=== PATIENT | female | born 1990 | race Two or more races ===

== ENCOUNTER 2024-07-27 23:23 | Emergency (ER) | payer SELFPAY ==
[~2024-07-27] VITALS: Ht 167.6 cm; Wt 60.0 kg
[2024-07-27] MEDS ORDERED: MORPHINE SULFATE INJ 2 MG/ml SYRG IV ONE (23:45)
[2024-07-28] MEDS: AMPICILLIN & SULBACTAM SODIUM 3 GM in SODIUM CHL 0.9% 100 ML IV ONE
[2024-07-28] MEDS: ONDANSETRON HCL 4 MG/2 ML VIAL IV ONE (00:13)
[2024-07-28] MEDS: PIPERACILLIN-TAZO 4.5GM 100 ML IV ONE (00:13)
[2024-07-28] MEDS ORDERED: TETANUS-DIPTH-ACEL PERTUSSIS 0.5ML SYR Tdap IM ONE (00:16)
[2024-07-28] MEDS: TETANUS-DIPTH-ACEL PERTUSSIS 0.5ML SYR Tdap IM ONE (00:16)
[2024-07-28] MEDS: MORPHINE SULFATE 4 MG/ML SYR/VIAL IV ONE (00:17)
[2024-07-28 00:30] VITALS: PULSE 90; RESP 22; TEMP 98; O2SAT 98
--- NOTE | 2024-07-28 00:35 | DVH ---
EXAM: XY R FOREARM XRAY HISTORY: dog bite COMPARISON: None TECHNIQUE: AP and lateral views of the right forearm were performed. FINDINGS/IMPRESSION: No acute fracture of the right radius or ulna.
--- NOTE | 2024-07-28 00:37 | DVH ---
EXAM: XY R KNEE 3V XRAY HISTORY: dog bite COMPARISON: None TECHNIQUE: 3 views of the right knee were performed. FINDINGS: No acute fracture is identified about the right knee. No significant joint space narrowing. No evid ence of significant joint effusion. IMPRESSION: Unremarkable radiographs of the right knee.
--- NOTE | 2024-07-28 01:21 | ED.PDOC ---
Jodee. trauma (HPI) HPI Comments 33-year-old female with no significant past medical history brought in by friend complaining of dog bites to the right arm and right lower extremity that occurred just prior to arrival. Patient reports [place] when she was attacked and bitten by a dog that was unknown to her. She reports a large laceration on her right forearm and puncture wounds on her right knee area. She denies any limited range of motion, numbness, weakness or other injuries. Chief Complaint: Animal Bite Time Seen by MD: 23:40 Primary Care Provider: n/a Reviewed notes: Nurses Notes, Medications, Allergies Allergies: Coded Allergies: NO KNOWN ALLERGIES (Unverified , 07/27/24) Information Source: Patient, Friend Mode of Arrival: Wheelchair Severity: Moderate Timing: Minutes Duration: Since onset Prehospital treatment: None Location: (R) Forearm, (R) Knee Location of laceration: Extremities Mechanism: Other (animal bite) Associated signs and symtoms: Other (laceration and puncture wound to right forearm and knee, respectively, with associated pain ) Past Medical History PAST MEDICAL HISTORY: Denies Surgical History: Denies all surgeries 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 Moist mucous membranes.) Neck: Full Range of Motion, Normal Inspection Respiratory: Lungs Clear, No Accessory Muscle Use, No Respiratory Distress, Normal Breath Sounds Cardiovascular: No Edema, No JVD, Regular Rate/Rhythm Breast Exam: Deferred Gastrointestinal: Non Tender, Soft Genitalia: Deferred Pelvic: Deferred Rectal: Deferred Extremities: Normal range of motion (Approximate 5 cm linear laceration and localized wound site tenderness right proximal forearm, superficial puncture wounds lateral aspect right knee with localized tenderness.), Tender, Other (Right upper and lower extremities neurovascularly intact.) Neurologic: Alert (Oriented x4), Normal Affect, Other (Anxious and tearful. Ambulatory.) Cerebellar Function: NOT DONE Reflexes: NOT DONE Skin: Dry, Warm, Other (Approximate 5 cm linear laceration with surrounding excoriations proximal/volar aspect right forearm. Superficial puncture wounds lateral aspect right knee.) Peripheral Pulses: 2+ Radial (R) Lymphatic: NOT DONE Was a procedure done? Was a procedure done?: Yes Sedation Sedation?: No Laceration Repair : Location Right forearm Length Approximate 5 cm Anesthetic: Lidocaine, Without epi Laceration Repair Prep: Saline, Betadine, by Irrigation Laceration Repair Wound Comple: epidermis/dermis repair Laceration Repair: Number of sutures (7), Skin, SQ, Bacitracin, Non-adherent gauze Informed consent obtained: Yes Risks, benefits, and alternati: Yes Differential Diagnosis Multiple Trauma: Contusion, Foreign Body, Laceration, Other (Fracture, tendon injury, other soft tissue injury, neurovascular injury, among others) X-Ray, Labs, Meds, VS Vital Signs Date Time Temp Pulse Resp B/P (MAP) Pulse Ox O2 Delivery O2 Flow Rate FiO2 07/28/24 01:00 86 12 112/65 (81) 97 07/28/24 01:00 86 12 112/65 07/28/24 00:30 90 22 98 Room Air* 0 21 07/28/24 00:30 98.0 90 22 111/72 (85) 98 98.0 07/28/24 00:17 90 22 111/72 07/27/24 23:25 98.0 90 20 141/96 (111) 98 98.0 Current Medications Medications (Trade) Dose Ordered Sig/Kameron Route Start Time Stop Time Status Last Admin Diphtheria/ Tetanus/Acell Pertussis (Boostrix T-Dap) 0.5 ml ONCE ONCE IM 07/27/24 23:45 07/27/24 23:46 DC 07/28/24 00:16 Ondansetron HCl (Zofran) 4 mg ONCE ONCE IV 07/27/24 23:45 07/27/24 23:46 DC 07/28/24 00:13 Piperacillin Sod/ Tazobactam Sod 100 ml @ 100 mls/hr ONCE ONCE IV 07/28/24 00:00 07/28/24 00:59 DC 07/28/24 00:13 Morphine Sulfate 4 mg ONCE ONCE IV 07/28/24 00:15 07/28/24 00:16 DC 07/28/24 00:17 Lorazepam (Ativan Inj) 0.5 mg ONCE ONCE IV 07/28/24 01:30 07/28/24 01:31 DC 07/28/24 01:35 [place] [address] Ph: [phone] DIAGNOSTIC IMAGING Diagnostic Imaging Report : [id number] Signed PATIENT: NEAL HANKINS ACCT: [id number] UNIT: [id number] : 1990 LOC: ER ROOM / BED: / AGE / SEX: 33 / F ADM STATUS: REG ER SERVICE 36 ORDERING PHYSICIAN: KARINA STEEN MD PROCEDURE(s): RKN3 - R KNEE 3V XRAY REASON: dog bite ORDER NUMBER(s): [id number], ACCESSION NUMBER(s): [id number] EXAM: XY R KNEE 3V XRAY HISTORY: dog bite COMPARISON: None TECHNIQUE: 3 views of the right knee were performed. FINDINGS: No acute fracture is identified about the right knee. No significant joint space narrowing. No evidence of significant joint effusion. IMPRESSION: Unremarkable radiographs of the right knee. ATED BY: PHOEBE HODGE DO DICTATED DATE/TIME: 07/28/2433 SIGNED BY: PHOEBE HODGE DO SIGNED DATE/TIME: 07/28/2433 CC: [place] [address] Ph: [phone] DIAGNOSTIC IMAGING Diagnostic Imaging Report : [id number] Signed PATIENT: NEAL HANKINS ACCT: [id number] UNIT: [id number] : 1990 LOC: ER ROOM / BED: / AGE / SEX: 33 / F ADM STATUS: REG ER SERVICE 36 ORDERING PHYSICIAN: KARINA STEEN MD PROCEDURE(s): RFOR - R FOREARM XRAY REASON: dog bite ORDER NUMBER(s): [id number], ACCESSION NUMBER(s): [id number] EXAM: XY R FOREARM XRAY HISTORY: dog bite COMPARISON: None TECHNIQUE: AP and lateral views of the right forearm were performed. FINDINGS/IMPRESSION: No acute fracture of the right radius or ulna. ATED BY: PHOEBE HODGE DO DICTATED DATE/TIME: 07/28/2432 SIGNED BY: PHOEBE HODGE DO SIGNED DATE/TIME: 07/28/2432 CC: X-Ray, Labs, Meds, VS Comment 33-year-old female with no significant past medical history presenting with dog bites to the right forearm and right knee Vitals remarkable for blood pressure 141/96, respiratory rate 22 Exam remarkable for an intermediate depth approximate 5 cm laceration on the ri ght forearm and superficial puncture wounds on the lateral aspect of the right knee Rhythm strip independently interpreted by me: Sinus rhythm, rate 90, no ectopy. Right forearm and knee x-rays unremarkable Patient treated with the following in the ED: Morphine 4 mg IV, Zofran 4 mg IV, Ativan 0.5 mg IV, Zosyn 4.5 g IV, Toradol 30 mg IV The right forearm wound was closed. Please see procedure note for details. On re-evaluation after wound closure, patient states pain is controlled. The right upper extremity is neurovascularly intact. Patient and friend were advised regarding workup findings, my impression, treatment plan and follow-up recommendations. They expressed understanding and agreed. Rx Augmentin, Tylenol, ibuprofen, bacitracin Time of 1ST Reevaluation: 00:10 Reevaluation 1ST: Unchanged Time of 2ND Reevaluation: 03:15 Reevaluation 2ND: Improved Patient Education/Counseling: Diagnosis, Treatment Family Education/Counseling: Diagnosis, Treatment Departure 1 Departure Time of Disposition: 03:15 Impression: Primary Impression: Dog bite Qualified Codes: W54.0XXA - Bitten by dog, initial encounter Additional Impression: Forearm laceration Qualified Codes: S51.811A - Laceration without foreign body of right forearm, initial encounter Disposition: 01 HOME / SELF CARE / HOMELESS Condition: Stable Additional Instructions: Your x-rays were normal. I have prescribed pain medicine and antibiotics to prevent infection. Follow-up in ER, urgent care or with primary doctor in 2 days for wound check and in 10 days for suture removal. Return to ER or seek immediate medical attention for increasing pain, redness, swelling, fever, wound discharge, or any other concern. e-Prescriptions Bacitracin Zinc (Bacitracin) 500 Unit/Gm Oin 1 APPLIC TOP TID, #30 GRAMS Prov: AU DIAMOND,KARINA T MD 07/28/24 Ibuprofen (Ibuprofen) 800 Mg Tab 1 TAB PO Q8HP PRN, #30 TAB 1 Refill Prn pain. Take with food. Prov: KARINA STEEN MD 07/28/24 Acetaminophen (Tylenol Extra Strength) 500 Mg Tab 1000 MG PO Q6HP PRN, #30 TAB Prn pain Prov: KARINA STEEN MD 07/28/24 Amoxicillin & Pot Clavulanate (AUGMENTIN TABLET) 875 Mg Tb 875 MG PO BID for 10 Days, #20 TAB Prov: KARINA STEEN MD 07/28/24 Discharged With: Friend Critical Care Note Critical Care Time?: No Stability Stability form required: No Heart Score Heart Score: Heart Score Response (Comments) Value History N/A 0 EKG N/A 0 Age N/A 0 Risk Factors N/A 0 Troponin N/A 0 Total 0 I personally scribed for KARINA STEEN MD ([email or web address]) on 07/28/24 at 01:21. Electronically submitted by Federico Lu ([email or web address]). KARINA STEEN MD Jul 28, 2024 01:21
[2024-07-28] MEDS: LORazepam 2MG/ML-1ML VIAL IV ONE (01:35)
[2024-07-28] MEDS: BACITRACIN TOP OINT 1 UD PKG TOP ONE (03:12)
[2024-07-28] MEDS: KETOROLAC TROMETH 30 MG/ML 1ML VIAL IV ONE (03:12)
[2024-07-28] MEDS ORDERED: BACI-5 TOP (03:19)
[2024-07-28] MEDS ORDERED: IBUP-1456 PO (03:19)
[2024-07-28] MEDS ORDERED: ACET-1304 PO (03:19)
[2024-07-28] MEDS ORDERED: AUG875T PO (03:19)
[2024-07-28 03:49] VITALS: BP 110/62; PULSE 77; RESP 10; O2SAT 98
== END 2024-07-28 03:50 | disposition home or self-care (01) ==
LOC: ER 23:23
DX: S51.811A Laceration without foreign body of right forearm, initial encounter (principal); W54.0XXA Bitten by dog, initial encounter; Y93.01 Activity, walking, marching and hiking; Y92.89 Other specified places as the place of occurrence of the external cause; Y99.8 Other external cause status
CPT/HCPCS: 12002; 73090; 73562; 90471; 90715; 96365; 96375; 99285; J1885; J2060; J2270; J2405; J2543